=== PATIENT | female | born 1950 | race Caucasian/White ===

== ENCOUNTER 2023-08-20 14:07 | Inpatient (IN) | payer MEDICARE, OTHER ==
[~2023-08-20] VITALS: Ht 160 cm; Wt 124.3 kg
[2023-08-20 15:12] LABS: BASOPHILS # (AUTO) 0.09 K/uL (0.00-0.20); BASOPHILS % (AUTO) 0.3 % (0.0-5.0); EOSINOPHILS # (AUTO) 0.01 K/uL (0.00-0.70); HEMATOCRIT 37.5 % (36-48); IMMATURE GRANULOCYTE ABSOLUTE 0.35 K/uL (0-1); LYMPHOCYTES # (AUTO) 1.6 K/uL (1.0-4.8); LYMPHOCYTES % (AUTO) 6.1 % (21.0-51.0); MEAN CORPUSCULAR HEMOGLOBIN 28.1 pg (27.0-33.0); MEAN CORPUSCULAR HGB CONC 32.8 g/dL (32.0-36.0); MEAN CORPUSCULAR VOLUME 85.8 fL (79-99); MONOCYTES # (AUTO) 1.6 K/uL (0.1-1.0); MONOCYTES % (AUTO) 6.2 % (3.0-13.0); NEUTROPHILS # (AUTO) 22.3 K/uL (1.8-7.7); NEUTROPHILS % (AUTO) 86.1 % (40.0-77.0); PLATELET COUNT (AUTO) 301 K/uL (130-400); RED BLOOD CELL COUNT(AUTO) 4.37 MIL/uL (4.00-5.50); RED CELL DISTRIBUTION WIDTH 14.6 % (11.0-15.5)
[2023-08-20] MEDS: 0.9%NACL 1000ML 1,000 ML IV ONE (15:24)
[2023-08-20] MEDS: CEFTRIAXONE 2GM VIAL IVPB ONE (15:24)
[2023-08-20] MEDS: KETOROLAC 30MG VIAL (30MG/ML) IVP ONE (15:24)
[2023-08-20 15:26] LABS: APPEARANCE,URINE CLOUDY (CLEAR); BILIRUBIN,URINE NEGATIVE (NEGATIVE); COLOR,URINE YELLOW (YELLOW); GLUCOSE, URINE (UA) NEGATIVE (NEGATIVE); KETONES,URINE NEGATIVE (NEGATIVE); LEUKOCYTE ESTERASE ,URINE 75 Leu/uL (NEGATIVE); NITRATE,URINE NEGATIVE (NEGATIVE); OCCULT BLOOD,URINE NEGATIVE (NEGATIVE); PH,URINE 5.5 (5.0-8.0); PROTEIN,URINE 50 mg/dL (NEGATIVE); UROBILINOGEN,URINE 0.2 mg/dL (0.2-1.0)
[2023-08-20 15:26] LABS: CREATININE 1.5 mg/dL (0.5-1.0); POTASSIUM 4.5 mmol/L (3.5-5.1); WBC MORPHOLOGY CONSISTENT W/DIFF
[2023-08-20] MEDS: ONDANSETRON 4MG INJ IVP ONE (15:26)
[2023-08-20] MEDS: ACETAMINOPHEN 500 MG TABLET PO ONE (15:26)
[2023-08-20 15:28] LABS: ADD UA MICROSCOPIC YES
[2023-08-20 15:30] LABS: ALBUMIN 3.2 g/dL (3.5-5.0); BILIRUBIN,TOTAL 1.3 mg/dL (0.2-1.0); TOTAL PROTEIN, SERUM 7.8 g/dL (6.0-8.3)
[2023-08-20 15:34] LABS: MUCUS,URINE RARE LPF (None Seen); RBC,URINE 51-100 /HPF (0-1); SQUAMOUS EPITHELIAL CELL,UR MANY /HPF (0-2); YEAST,URINE BUDDING FEW /HPF (None Seen)
[2023-08-20] MEDS ORDERED: VANCOMYCIN PROTOCOL PER PHARMACY IV SCH (17:00)
[2023-08-20] MEDS: 0.9%NACL 1000ML 1,572 ML IV ONE (17:26)
[2023-08-20 17:29] LABS: INR 1.04 (0.85-1.15); PROTHROMBIN TIME 12.2 SEC (9.6-11.6)
[2023-08-20] MEDS: VANCOMYCIN KIT 1 GM/250 ML IV.KIT IV ONE (17:29)
[2023-08-20 17:30] VITALS: PULSE 87; RESP 20; O2SAT 97
[2023-08-20] MEDS ORDERED: RENAL DOSE IV SCH (17:30)
[2023-08-20] MEDS: INSULIN HUMULIN R 100 UNIT/ML 3ML SQ SCH (17:30)
[2023-08-20] MEDS ORDERED: IPRATROPIUM/ALBUTEROL SULFATE 3 ML SOLUTION IH PRN (17:30)
[2023-08-20] MEDS ORDERED: ONDANSETRON 4MG INJ IVP PRN (17:30)
[2023-08-20] MEDS: VANCOMYCIN 1.25 GM/250 ML BAG 250 ML IV SCH (17:37)
[2023-08-20 17:38] LABS: MAGNESIUM 0.9 mg/dL (1.80-2.40)
[2023-08-20 17:52] LABS: HEMOGLOBIN A1C 6.9 % (4.0-6.0)
[2023-08-20] MEDS: MAGNESIUM 2GM PREMIX 50ML 50 ML IV SCH (18:26)
[2023-08-20 19:16] VITALS: PULSE 91; RESP 18; O2SAT 97
[2023-08-20] MEDS: 0.9%NACL 1000ML 1,000 ML IV SCH (20:00)
[2023-08-20] MEDS: METRONIDAZOLE 500MG/100ML BAG 100 ML IVPB SCH (22:16)
[2023-08-20] MEDS: CEFEPIME HCL 2 GM VIAL IVPB SCH (22:16)
[2023-08-20] MEDS ORDERED: SPIR50TA5 PO (22:25)
[2023-08-20] MEDS ORDERED: LOSA100T59 PO (22:25)
[2023-08-20] MEDS ORDERED: AEC81 PO (22:25)
[2023-08-20] MEDS ORDERED: METF-444 PO (22:25)
[2023-08-20] MEDS ORDERED: ATOR40TA69 PO (22:25)
[2023-08-20] MEDS ORDERED: AMLO-258 PO (22:25)
[2023-08-20] MEDS ORDERED: GLIP10TA9 PO (22:25)
[2023-08-20 22:45] VITALS: BP 126/76; PULSE 110; RESP 24
[2023-08-20 23:00] VITALS: O2SAT 98
[2023-08-21] VITALS (9 sets, daily range): BP systolic 103–134; BP diastolic 42–63; PULSE 91–109; RESP 15–20; O2SAT 96–98
[2023-08-21] MEDS: ACETAMINOPHEN 500 MG TABLET PO PRN (00:52)
[2023-08-21 04:18] LABS: BASOPHILS # (AUTO) 0.03 K/uL (0.00-0.20); BASOPHILS % (AUTO) 0.2 % (0.0-5.0); HEMATOCRIT 30.7 % (36-48); IMMATURE GRANULOCYTE ABSOLUTE 0.28 K/uL (0-1); LYMPHOCYTES # (AUTO) 0.7 K/uL (1.0-4.8); LYMPHOCYTES % (AUTO) 3.6 % (21.0-51.0); MEAN CORPUSCULAR HEMOGLOBIN 28.5 pg (27.0-33.0); MEAN CORPUSCULAR HGB CONC 32.6 g/dL (32.0-36.0); MEAN CORPUSCULAR VOLUME 87.5 fL (79-99); MONOCYTES # (AUTO) 1.2 K/uL (0.1-1.0); MONOCYTES % (AUTO) 6.4 % (3.0-13.0); NEUTROPHILS # (AUTO) 16.8 K/uL (1.8-7.7); NEUTROPHILS % (AUTO) 88.3 % (40.0-77.0); PLATELET COUNT (AUTO) 225 K/uL (130-400); RED BLOOD CELL COUNT(AUTO) 3.51 MIL/uL (4.00-5.50); RED CELL DISTRIBUTION WIDTH 14.8 % (11.0-15.5); WHITE BLOOD COUNT (AUTO) 19.1 K/uL (4.8-10.8)
[2023-08-21 04:43] LABS: ALBUMIN 2.3 g/dL (3.5-5.0); BILIRUBIN,TOTAL 0.5 mg/dL (0.2-1.0); CREATININE 1.3 mg/dL (0.5-1.0); MAGNESIUM 1.6 mg/dL (1.80-2.40); POTASSIUM 4.2 mmol/L (3.5-5.1); TOTAL PROTEIN, SERUM 6.2 g/dL (6.0-8.3)
[2023-08-21] MEDS ORDERED: CEFTRIAXONE 2GM VIAL IVPB SCH (09:00)
[2023-08-21] MEDS ORDERED: COMPOUND IV MISC 1 EACH IVSOLN MISC PRN (18:30)
[2023-08-21] MEDS ORDERED: COMPOUND IV REFRIGERATED 1 EACH IVSOLN MISC PRN (18:30)
[2023-08-22] VITALS (9 sets, daily range): BP systolic 109–122; BP diastolic 51–59; PULSE 87–94; RESP 16–20; O2SAT 98–99
[2023-08-22 04:46] LABS: HEMATOCRIT 28.3 % (36-48); MEAN CORPUSCULAR HEMOGLOBIN 27.7 pg (27.0-33.0); MEAN CORPUSCULAR HGB CONC 32.2 g/dL (32.0-36.0); MEAN CORPUSCULAR VOLUME 86.3 fL (79-99); RED BLOOD CELL COUNT(AUTO) 3.28 MIL/uL (4.00-5.50); RED CELL DISTRIBUTION WIDTH 14.9 % (11.0-15.5); WHITE BLOOD COUNT (AUTO) 16.9 K/uL (4.8-10.8)
[2023-08-22 05:29] LABS: CREATININE 1.2 mg/dL (0.5-1.0); POTASSIUM 4.4 mmol/L (3.5-5.1)
[2023-08-22] MEDS ORDERED: NON-FORMULARY MEDICATION 1 EACH (Spironolactone 50 MG) PO SCH (09:00)
[2023-08-22] MEDS: ATORVASTATIN 40 MG TABLET PO SCH (09:02)
[2023-08-22] MEDS: SPIRONOLACTONE 25 MG TAB PO SCH (09:02)
[2023-08-22] MEDS: ASPIRIN 81 MG EC TAB PO SCH (09:03)
[2023-08-22] MEDS: LOSARTAN 100 MG TABLET PO SCH (09:03)
[2023-08-22] MEDS ORDERED: OMEP20CA12 PO (09:27)
[2023-08-22 13:42] LABS: ABG BASE EXCESS -6.7 mmol/L (-2.0-3.0); ABG HCO3 16.3 mmol/L (21.0-28.0); ABG OXYGEN SATURATION 97.4 % (95.0-99.0); ABG PCO2 27 mmHg (32-45); ABG PH 7.402 (7.35-7.450); DEVICE COMMENT LR RA; PO2, ARTERIAL BG 94.6 mmHg (83.0-108.0)
[2023-08-22 13:49] LABS: CREATININE 1.2 mg/dL (0.5-1.0); POTASSIUM 4.5 mmol/L (3.5-5.1)
[2023-08-22] MEDS: INSULIN HUMULIN R 100 UNIT/ML 3ML ONE (19:59)
[2023-08-22] MEDS: INSULIN HUMULIN R 100 UNIT/ML 3ML SQ SCH (20:06)
[2023-08-22 20:07] LABS: CREATININE 1.2 mg/dL (0.5-1.0); POTASSIUM 4.4 mmol/L (3.5-5.1)
[2023-08-23] VITALS (9 sets, daily range): BP systolic 122–143; BP diastolic 60–71; PULSE 80–92; RESP 15–21; O2SAT 96–98
[2023-08-23 04:46] LABS: HEMATOCRIT 29.3 % (36-48); MEAN CORPUSCULAR HEMOGLOBIN 27.8 pg (27.0-33.0); MEAN CORPUSCULAR HGB CONC 32.4 g/dL (32.0-36.0); MEAN CORPUSCULAR VOLUME 85.7 fL (79-99); RED BLOOD CELL COUNT(AUTO) 3.42 MIL/uL (4.00-5.50); WHITE BLOOD COUNT (AUTO) 13.7 K/uL (4.8-10.8)
[2023-08-23 05:05] LABS: POTASSIUM 4.4 mmol/L (3.5-5.1)
[2023-08-23] MEDS: PANTOPRAZOLE 40 MG TAB DR PO SCH (11:14)
[2023-08-23] MEDS: LACTULOSE 20 GM/30 ML UDCUP PO PRN (12:27)
[2023-08-24] VITALS (26 sets, daily range): BP systolic 120–145; BP diastolic 59–75; PULSE 61–94; RESP 13–20; O2SAT 97–100
[2023-08-24 04:28] LABS: BASOPHILS # (AUTO) 0.07 K/uL (0.00-0.20); BASOPHILS % (AUTO) 0.6 % (0.0-5.0); EOSINOPHILS # (AUTO) 0.18 K/uL (0.00-0.70); EOSINOPHILS % (AUTO) 1.6 % (0.0-8.0); HEMATOCRIT 30.2 % (36-48); IMMATURE GRANULOCYTE ABSOLUTE 0.58 K/uL (0-1); LYMPHOCYTES # (AUTO) 1.4 K/uL (1.0-4.8); LYMPHOCYTES % (AUTO) 12.6 % (21.0-51.0); MEAN CORPUSCULAR HGB CONC 32.1 g/dL (32.0-36.0); MEAN CORPUSCULAR VOLUME 87.3 fL (79-99); MONOCYTES # (AUTO) 0.8 K/uL (0.1-1.0); MONOCYTES % (AUTO) 7.1 % (3.0-13.0); NEUTROPHILS # (AUTO) 8.2 K/uL (1.8-7.7); NEUTROPHILS % (AUTO) 72.9 % (40.0-77.0); PLATELET COUNT (AUTO) 299 K/uL (130-400); RED BLOOD CELL COUNT(AUTO) 3.46 MIL/uL (4.00-5.50); RED CELL DISTRIBUTION WIDTH 15.3 % (11.0-15.5); WHITE BLOOD COUNT (AUTO) 11.2 K/uL (4.8-10.8)
[2023-08-24 04:40] LABS: BILIRUBIN,TOTAL 0.3 mg/dL (0.2-1.0); CREATININE 1.1 mg/dL (0.5-1.0); POTASSIUM 4.5 mmol/L (3.5-5.1)
[2023-08-24] MEDS ORDERED: ONDANSETRON 4MG INJ ONE (19:34)
[2023-08-24] MEDS ORDERED: DEXAMETHASONE SOD PHOSPHATE 4 MG/ML 1ML VIAL ONE (19:34)
[2023-08-24] MEDS ORDERED: LIDOCAINE PF 100MG/5ML (2%) SYRINGE 5ML ONE (19:34)
[2023-08-24] MEDS ORDERED: MIDAZOLAM HCL 1 MG/ML 2ML VIAL ONE (19:34)
[2023-08-24] MEDS ORDERED: ROCURONIUM BROMIDE 10MG/1ML 5ML VL ONE (19:35)
[2023-08-24] MEDS ORDERED: PROPOFOL 10 MG/ML 20ML VIAL IV ONE (19:35)
[2023-08-24] MEDS ORDERED: FENTANYL CITRATE PF 50 MCG/1 ML 2ML VIAL ONE ×2 (19:35→20:30)
[2023-08-24] MEDS ORDERED: GLYCOPYRROLATE 0.2 MG/ML 5 ML VIAL ONE (21:01)
[2023-08-24] MEDS ORDERED: NEOSTIGMINE METHYLSULFATE 1MG/ML IV ONE (21:02)
[2023-08-24] MEDS: MEPERIDINE-PF 25 MG/ML SYG ONE ×2 (22:11→22:12)
[2023-08-24] MEDS: ONDANSETRON 4MG INJ ONE (22:11)
[2023-08-24] MEDS: ACETAMINOPHEN 1,000 MG/100 ML VIAL IV ONE (22:12)
[2023-08-25] VITALS (12 sets, daily range): BP systolic 103–143; BP diastolic 49–76; PULSE 61–76; RESP 18–19; O2SAT 96–98
[2023-08-25] MEDS: OXYCODONE/ACETAMIN 5/325MG TAB PO PRN (03:19)
[2023-08-25 05:41] LABS: BASOPHILS % (AUTO) 0.6 % (0.0-5.0); EOSINOPHILS # (AUTO) 0.01 K/uL (0.00-0.70); EOSINOPHILS % (AUTO) 0.1 % (0.0-8.0); HEMATOCRIT 31.5 % (36-48); IMMATURE GRANULOCYTE ABSOLUTE 0.97 K/uL (0-1); LYMPHOCYTES % (AUTO) 6.4 % (21.0-51.0); MEAN CORPUSCULAR HEMOGLOBIN 27.7 pg (27.0-33.0); MEAN CORPUSCULAR HGB CONC 32.1 g/dL (32.0-36.0); MEAN CORPUSCULAR VOLUME 86.3 fL (79-99); MONOCYTES # (AUTO) 0.4 K/uL (0.1-1.0); MONOCYTES % (AUTO) 2.8 % (3.0-13.0); NEUTROPHILS # (AUTO) 13.3 K/uL (1.8-7.7); PLATELET COUNT (AUTO) 332 K/uL (130-400); RED BLOOD CELL COUNT(AUTO) 3.65 MIL/uL (4.00-5.50); RED CELL DISTRIBUTION WIDTH 15.2 % (11.0-15.5); WHITE BLOOD COUNT (AUTO) 15.9 K/uL (4.8-10.8)
[2023-08-25 05:57] LABS: ALBUMIN 2.1 g/dL (3.5-5.0); BILIRUBIN,TOTAL 0.3 mg/dL (0.2-1.0); POTASSIUM 5.6 mmol/L (3.5-5.1); TOTAL PROTEIN, SERUM 6.1 g/dL (6.0-8.3)
[2023-08-26] VITALS (9 sets, daily range): BP systolic 115–164; BP diastolic 55–69; PULSE 69–82; RESP 16–19; O2SAT 95–98
[2023-08-26 06:29] LABS: BASOPHILS # (AUTO) 0.13 K/uL (0.00-0.20); BASOPHILS % (AUTO) 0.9 % (0.0-5.0); EOSINOPHILS % (AUTO) 1.4 % (0.0-8.0); HEMATOCRIT 32.7 % (36-48); IMMATURE GRANULOCYTE ABSOLUTE 1.77 K/uL (0-1); LYMPHOCYTES # (AUTO) 2.6 K/uL (1.0-4.8); LYMPHOCYTES % (AUTO) 18.4 % (21.0-51.0); MEAN CORPUSCULAR HGB CONC 31.8 g/dL (32.0-36.0); MEAN CORPUSCULAR VOLUME 88.1 fL (79-99); MONOCYTES # (AUTO) 0.9 K/uL (0.1-1.0); MONOCYTES % (AUTO) 6.6 % (3.0-13.0); NEUTROPHILS # (AUTO) 8.4 K/uL (1.8-7.7); PLATELET COUNT (AUTO) 319 K/uL (130-400); RED BLOOD CELL COUNT(AUTO) 3.71 MIL/uL (4.00-5.50); RED CELL DISTRIBUTION WIDTH 15.3 % (11.0-15.5)
[2023-08-26 06:57] LABS: ALBUMIN 2.3 g/dL (3.5-5.0); BILIRUBIN,TOTAL 0.3 mg/dL (0.2-1.0); CREATININE 1.2 mg/dL (0.5-1.0); POTASSIUM 4.5 mmol/L (3.5-5.1)
[2023-08-26] MEDS ORDERED: VANCOMYCIN PROTOCOL PER PHARMACY IV SCH (11:30)
[2023-08-26] MEDS: METRONIDAZOLE 500MG/100ML BAG 100 ML IVPB SCH (12:20)
[2023-08-26] MEDS ORDERED: METRONIDAZOLE 500MG/100ML BAG IV SCH (13:00)
[2023-08-26] MEDS ORDERED: VANCOMYCIN 1.25 GM/250 ML BAG 250 ML IV SCH (18:00)
[2023-08-26] MEDS: VANCOMYCIN 1.5 GM/250 ML BAG IV SCH (20:13)
[2023-08-27] VITALS (8 sets, daily range): BP systolic 110–138; BP diastolic 54–66; PULSE 72–97; RESP 18; O2SAT 95–98
[2023-08-27 04:04] LABS: BASOPHILS # (AUTO) 0.04 K/uL (0.00-0.20); BASOPHILS % (AUTO) 0.4 % (0.0-5.0); EOSINOPHILS # (AUTO) 0.23 K/uL (0.00-0.70); HEMATOCRIT 32.4 % (36-48); IMMATURE GRANULOCYTE ABSOLUTE 2.19 K/uL (0-1); LYMPHOCYTES % (AUTO) 17.3 % (21.0-51.0); MEAN CORPUSCULAR HEMOGLOBIN 27.4 pg (27.0-33.0); MEAN CORPUSCULAR HGB CONC 31.2 g/dL (32.0-36.0); MONOCYTES # (AUTO) 0.7 K/uL (0.1-1.0); MONOCYTES % (AUTO) 6.4 % (3.0-13.0); NEUTROPHILS # (AUTO) 6.2 K/uL (1.8-7.7); NEUTROPHILS % (AUTO) 54.5 % (40.0-77.0); NUCLEATED RED BLOOD CELLS 0.2 % (0.0-0.19); PLATELET COUNT (AUTO) 362 K/uL (130-400); RED BLOOD CELL COUNT(AUTO) 3.68 MIL/uL (4.00-5.50); RED CELL DISTRIBUTION WIDTH 15.4 % (11.0-15.5); WHITE BLOOD COUNT (AUTO) 11.3 K/uL (4.8-10.8)
[2023-08-27 04:26] LABS: ALBUMIN 2.3 g/dL (3.5-5.0); BILIRUBIN,TOTAL 0.3 mg/dL (0.2-1.0); CREATININE 1.1 mg/dL (0.5-1.0); MAGNESIUM 1.6 mg/dL (1.80-2.40); POTASSIUM 4.4 mmol/L (3.5-5.1); TOTAL PROTEIN, SERUM 5.7 g/dL (6.0-8.3)
[2023-08-27] MEDS ORDERED: MAGNESIUM 2GM PREMIX 50ML 50 ML IV SCH (08:00)
[2023-08-28 00:05] VITALS: BP 139/66; PULSE 74; RESP 18
[2023-08-28 03:54] VITALS: BP 136/65; PULSE 70; RESP 20
[2023-08-28 04:42] LABS: BASOPHILS # (AUTO) 0.02 K/uL (0.00-0.20); BASOPHILS % (AUTO) 0.2 % (0.0-5.0); EOSINOPHILS # (AUTO) 0.19 K/uL (0.00-0.70); EOSINOPHILS % (AUTO) 1.6 % (0.0-8.0); HEMATOCRIT 33.4 % (36-48); IMMATURE GRANULOCYTE ABSOLUTE 2.01 K/uL (0-1); LYMPHOCYTES # (AUTO) 2.1 K/uL (1.0-4.8); LYMPHOCYTES % (AUTO) 17.7 % (21.0-51.0); MEAN CORPUSCULAR HGB CONC 31.4 g/dL (32.0-36.0); MEAN CORPUSCULAR VOLUME 89.1 fL (79-99); MONOCYTES # (AUTO) 0.7 K/uL (0.1-1.0); MONOCYTES % (AUTO) 5.8 % (3.0-13.0); NEUTROPHILS # (AUTO) 6.8 K/uL (1.8-7.7); NEUTROPHILS % (AUTO) 57.7 % (40.0-77.0); NUCLEATED RED BLOOD CELLS 0.2 % (0.0-0.19); PLATELET COUNT (AUTO) 358 K/uL (130-400); RED BLOOD CELL COUNT(AUTO) 3.75 MIL/uL (4.00-5.50); RED CELL DISTRIBUTION WIDTH 15.5 % (11.0-15.5); WHITE BLOOD COUNT (AUTO) 11.8 K/uL (4.8-10.8)
[2023-08-28 04:53] LABS: ALBUMIN 2.3 g/dL (3.5-5.0); BILIRUBIN,TOTAL 0.3 mg/dL (0.2-1.0); CREATININE 1.1 mg/dL (0.5-1.0); MAGNESIUM 1.6 mg/dL (1.80-2.40); POTASSIUM 4.5 mmol/L (3.5-5.1); TOTAL PROTEIN, SERUM 5.9 g/dL (6.0-8.3)
[2023-08-28 08:00] VITALS: BP 137/61; PULSE 72; RESP 19
[2023-08-28] MEDS ORDERED: MAGNESIUM 2GM PREMIX 50ML 50 ML IV SCH (08:30)
[2023-08-28 11:48] VITALS: O2SAT 98
[2023-08-28 11:50] VITALS: BP 122/77; PULSE 91; RESP 18
[2023-08-28] MEDS ORDERED: SPIR25TA6 PO (11:53)
== END 2023-08-28 14:14 | disposition home health service (06) | DRG 872 ==
LOC: EDH 14:07 → EDHIP 16:54 → 4BH 21:29
PROVIDERS: ADMIT Internal Medicine; ATTEND Internal Medicine
PROC: 0Y910ZZ Drainage of Left Buttock, Open Approach (ICD-10-PCS; principal; 2023-08-24 19:55)
DX: A41.9 Sepsis, unspecified organism (principal); L02.31 Cutaneous abscess of buttock; N17.9 Acute kidney failure, unspecified; E87.20 Acidosis, unspecified; N39.0 Urinary tract infection, site not specified; L02.416 Cutaneous abscess of left lower limb; L03.116 Cellulitis of left lower limb; Z68.42 Body mass index [BMI] 45.0-49.9, adult; E86.1 Hypovolemia; E86.0 Dehydration; E83.42 Hypomagnesemia; I10 Essential (primary) hypertension; E66.01 Morbid (severe) obesity due to excess calories; E11.65 Type 2 diabetes mellitus with hyperglycemia; B95.62 Methicillin resistant Staphylococcus aureus infection as the cause of diseases classified elsewhere; D64.9 Anemia, unspecified; E78.00 Pure hypercholesterolemia, unspecified; K21.9 Gastro-esophageal reflux disease without esophagitis; L73.9 Follicular disorder, unspecified; Z96.653 Presence of artificial knee joint, bilateral; M17.0 Bilateral primary osteoarthritis of knee; R65.20 Severe sepsis without septic shock; Z90.710 Acquired absence of both cervix and uterus; Z79.899 Other long term (current) drug therapy; Z79.84 Long term (current) use of oral hypoglycemic drugs
CPT/HCPCS: 36415; 36600; 72170; 72192; 73700; 80048; 80053; 80202; 81001; 82010; 82550; 82803; 82948; 83036; 83605; 83735; 84145; 84443; 85025; 85027; 85610; 85651; 85730; 86140; 86850; 86900; 86901; 87040; 87070; 87076; 87077; 87088; 87186; 87205; 87641; 93005; 94640; 96365; 96375; 99291; G0378; J0692; J0696; J1100; J1815; J1885; J2001; J2175; J2250; J2405; J2704; J2710; J3010; J3370; J3475; J3490; J7030; 3370; A4452; A4600; A4930; A6445